=== PATIENT | male | born 1950 | race Caucasian/White ===

== ENCOUNTER 2019-07-31 16:07 | Inpatient (IN) | payer MEDICARE ==
[~2019-07-31] VITALS: Ht 177.8 cm; Wt 78.3 kg
--- NOTE | 2019-07-31 16:35 | NUR ---
HOSPITALIST AT BEDSIDE FOR EVAL. PT DIRECT ADMIT. PT CALM, RESTING. VSS. CALL TIAN IN REACH.
[2019-07-31] MEDS ORDERED: CHLORDIAZEPOXIDE 25 MG CAPSULE PO PRN (17:30)
[2019-07-31] MEDS ORDERED: LORazepam 2 MG/ML, 1ML IV PRN ×4 (17:30)
[2019-07-31] MEDS ORDERED: ACETAMINOPHEN 325 MG TABLET PO PRN (17:30)
[2019-07-31] MEDS ORDERED: AMLODIPINE 5 MG TABLET PO ONE (17:30)
[2019-07-31] MEDS ORDERED: PROMETHAZINE 25 MG/ML, 1ML IM PRN (17:30)
[2019-07-31] MEDS: NICOTINE 21 MG/24 HR PATCH.TD24 TD SCH (17:30)
[2019-07-31] MEDS ORDERED: THIAMINE 100MG TABLET PO ONE (17:30)
[2019-07-31] MEDS ORDERED: morphine SULFATE 10 MG/ML, 1ML IVPush PRN (17:30)
[2019-07-31] MEDS ORDERED: LABETALOL 5MG/ML, 20ML IVPush PRN (17:30)
[2019-07-31] MEDS ORDERED: hydrALAzine 20 MG/ML, 1ML IVPush PRN (17:30)
[2019-07-31] MEDS ORDERED: LORazepam 1MG TABLET PO PRN ×3 (17:30)
[2019-07-31] MEDS ORDERED: ONDANSETRON 2MG/ML, 2ML IVPush PRN (17:30)
[2019-07-31] MEDS ORDERED: THIAMINE 200 MG in SODIUM CHLORIDE 0.9% 50 ML IV ONE (17:30)
[2019-07-31] MEDS ORDERED: LORazepam 0.5MG TABLET PO PRN (17:30)
[2019-07-31] MEDS ORDERED: GADOTERATE 7.5 MMOL/15 ML SYR ONE (17:40)
--- NOTE | 2019-07-31 17:41 | NUR ---
CORRECTION: PT WAS OUT OF ROOM FOR TEST.
[2019-07-31] MEDS ORDERED: AMLODIPINE 5 MG TABLET ONE (18:23)
[2019-07-31] MEDS ORDERED: HEPARIN 5,000 UNITS/ML, 1ML ONE (18:23)
[2019-07-31] MEDS ORDERED: OXYcodone/APAP 5/325MG TABLET ONE (18:24)
[2019-07-31 18:28] LABS: TROPONIN I 0.036 ng/mL (0.000-0.045)
[2019-07-31] MEDS: POTASSIUM CHLORIDE 20 MEQ, MAGNESIUM SULFATE 2 GM, THIAMINE 200 MG, MVI ADULT 10 ML, FO... IV SCH (18:29)
[2019-07-31] MEDS: OXYcodone/APAP 5/325MG TABLET PO PRN (18:29)
[2019-07-31] MEDS: HEPARIN 5,000 UNITS/ML, 1ML SQ SCH (18:30)
--- NOTE | 2019-07-31 18:32 | NUR ---
XRAY WAITNG FOR PT TO GET JEANS OFF
[2019-07-31] MEDS ORDERED: HYDR-3341 PO (18:39)
--- NOTE | 2019-07-31 18:45 | NUR ---
XR KNEE PLANNED. MRI SHOWS OLD R STROKE.
--- NOTE | 2019-07-31 19:03 | NUR ---
CALLED FOR HOSPITAL BED. EKG DONE.
--- NOTE | 2019-07-31 20:22 | NUR ---
REPORT TO ACCEPTING RN.
[2019-07-31 21:02] VITALS: BP 175/75
[2019-07-31] MEDS ORDERED: ALUMINUM/MAG/SIMETHICONE 30 ML UDC ONE (22:01)
[2019-07-31] MEDS: THIAMINE 100MG TABLET PO SCH (22:11)
[2019-07-31] MEDS: ALUMINUM/MAG/SIMETHICONE 30 ML UDC PO PRN (22:11)
[2019-08-01] VITALS (8 sets, daily range): BP systolic 128–179; BP diastolic 72–86
[2019-08-01 01:28] LABS: TROPONIN I 0.091 ng/mL (0.000-0.045)
[2019-08-01] MEDS: OXYcodone/APAP 5/325MG TABLET PO PRN ×2 (03:11→21:52)
[2019-08-01] MEDS: HEPARIN 5,000 UNITS/ML, 1ML SQ SCH ×3 (03:13→21:44)
[2019-08-01] MEDS: ALUMINUM/MAG/SIMETHICONE 30 ML UDC PO PRN (05:51)
[2019-08-01 06:19] LABS: BASOPHILS # (AUTO) 0.02 x10^3/uL (0-0.1); BASOPHILS % (AUTO) 0 % (0-1); EOSINOPHILS # (AUTO) 0.04 x10^3/uL (0-0.4); EOSINOPHILS % (AUTO) 1 % (1-7); LYMPHOCYTES # (AUTO) 1.51 x10^3/uL (1-3.4); LYMPHOCYTES % (AUTO) 18 % (22-44); MD NO; MEAN CORPUSCULAR HEMOGLOBIN 34.6 pg (27.5-34.5); MEAN CORPUSCULAR HGB CONC 34.1 g/dL (33.2-36.2); MEAN CORPUSCULAR VOLUME 101.5 fL (81-97); MEAN PLATELET VOLUME 9.1 fL (7.4-10.4); MONOCYTES # (AUTO) 0.94 x10^3/uL (0.2-0.8); MONOCYTES % (AUTO) 11 % (2-9); NEUTROPHILS # (AUTO) 6.11 x10^3/uL (1.8-6.8); NEUTROPHILS % (AUTO) 71 % (42-75); PLATELET COUNT 170 x10^3/uL (130-400); RED BLOOD COUNT 3.23 x10^6/uL (4.38-5.82); RED CELL DISTRIBUTION WIDTH 13.9 % (9.4-14.8)
[2019-08-01 06:21] LABS: ALBUMIN 2.6 g/dL (3.4-5.0); ANION GAP 8 mmol/L (5-15); CHLORIDE 105 mmol/L (98-107)
[2019-08-01 06:28] LABS: ALANINE AMINOTRANSFERASE 24 U/L (12-78); ALKALINE PHOSPHATASE 98 U/L (45-117); BILIRUBIN,TOTAL 0.7 mg/dL (0.2-1.0); CREATININE 0.89 mg/dL (0.7-1.3); TOTAL PROTEIN 6.5 g/dL (6.4-8.2); TROPONIN I 0.086 ng/mL (0.000-0.045)
[2019-08-01] MEDS ORDERED: POTASSIUM PHOSPHATE 22 MEQ in SODIUM CHLORIDE 0.9% 500 ML IV ONE (07:30)
[2019-08-01] MEDS: FOLIC ACID 1 MG TABLET PO SCH (09:55)
[2019-08-01] MEDS: ASPIRIN 81 MG TABLET CHEW PO SCH (09:55)
[2019-08-01] MEDS: THIAMINE 100MG TABLET PO SCH ×2 (09:55→21:41)
[2019-08-01] MEDS: MAALOX/HYOSCYAMINE/LIDOCAINE 45 ML BTL PO PRN ×2 (11:42→21:41)
[2019-08-01] MEDS: POTASSIUM CHLORIDE 20 MEQ, MAGNESIUM SULFATE 2 GM, THIAMINE 200 MG, MVI ADULT 10 ML, FO... IV SCH ×2 (13:49→23:00)
[2019-08-01] MEDS ORDERED: AMLODIPINE 5 MG TABLET PO SCH (21:00)
[2019-08-01] MEDS: ATORVASTATIN 40 MG TABLET PO SCH (21:41)
[2019-08-01] MEDS: NICOTINE 21 MG/24 HR PATCH.TD24 TD SCH (21:44)
[2019-08-02 04:18] VITALS: BP 151/77
[2019-08-02] MEDS: HEPARIN 5,000 UNITS/ML, 1ML SQ SCH (06:16)
[2019-08-02 06:18] LABS: ALANINE AMINOTRANSFERASE 23 U/L (12-78); ALBUMIN 2.6 g/dL (3.4-5.0); ANION GAP 7 mmol/L (5-15); CALCIUM 7.8 mg/dL (8.5-10.1); CHLORIDE 107 mmol/L (98-107); CREATININE 0.81 mg/dL (0.7-1.3)
[2019-08-02 06:20] LABS: ALKALINE PHOSPHATASE 86 U/L (45-117); BILIRUBIN,TOTAL 0.7 mg/dL (0.2-1.0); TOTAL PROTEIN 6.4 g/dL (6.4-8.2)
[2019-08-02 07:30] VITALS: BP 165/78
[2019-08-02 07:33] VITALS: BP 156/77
[2019-08-02 07:35] VITALS: BP 169/84
[2019-08-02] MEDS: NEUTRA PHOS K 250 MG TABLET PO SCH ×2 (08:46→20:02)
[2019-08-02] MEDS: ASPIRIN 81 MG TABLET CHEW PO SCH (08:46)
[2019-08-02] MEDS: AMLODIPINE 5 MG TABLET PO SCH ×2 (08:46→08:49)
[2019-08-02] MEDS: THIAMINE 100MG TABLET PO SCH ×2 (08:47→20:03)
[2019-08-02] MEDS: LISINOPRIL 20 MG TABLET PO SCH ×2 (08:47→20:02)
[2019-08-02] MEDS: FOLIC ACID 1 MG TABLET PO SCH (08:47)
[2019-08-02] MEDS: MAALOX/HYOSCYAMINE/LIDOCAINE 45 ML BTL PO PRN (09:53)
[2019-08-02] MEDS: POTASSIUM CHLORIDE 20 MEQ, MAGNESIUM SULFATE 2 GM, THIAMINE 200 MG, MVI ADULT 10 ML, FO... IV SCH ×2 (10:49→14:24)
[2019-08-02] MEDS ORDERED: OMNIPAQUE 350 MG/ML, 100ML BOTTLE ONE ×3 (12:49→21:07)
[2019-08-02 12:53] VITALS: BP 152/91
[2019-08-02] MEDS: OXYcodone/APAP 5/325MG TABLET PO PRN ×2 (12:57→20:04)
[2019-08-02] MEDS: ENOXAPARIN 40 MG/0.4 ML SQ SCH (17:04)
[2019-08-02 19:51] VITALS: BP_SYST 172; BP_SYST 184; BP_DIAS 76; BP_DIAS 88
[2019-08-02] MEDS: ATORVASTATIN 40 MG TABLET PO SCH (20:02)
[2019-08-02] MEDS ORDERED: CHLORDIAZEPOXIDE 25 MG CAPSULE PO PRN (21:00)
[2019-08-03 01:15] VITALS: BP 179/86
[2019-08-03] MEDS: OXYcodone/APAP 5/325MG TABLET PO PRN ×4 (01:20→21:03)
[2019-08-03] MEDS: NICOTINE 21 MG/24 HR PATCH.TD24 TD SCH ×2 (01:29→23:21)
[2019-08-03 05:14] LABS: ALBUMIN 2.3 g/dL (3.4-5.0); CALCIUM 7.8 mg/dL (8.5-10.1); CHLORIDE 105 mmol/L (98-107)
[2019-08-03 05:20] LABS: ALANINE AMINOTRANSFERASE 22 U/L (12-78); ALKALINE PHOSPHATASE 78 U/L (45-117); ANION GAP 5 mmol/L (5-15); BILIRUBIN,TOTAL 0.7 mg/dL (0.2-1.0); CREATININE 0.79 mg/dL (0.7-1.3); TOTAL PROTEIN 6.3 g/dL (6.4-8.2)
[2019-08-03] MEDS: AMLODIPINE 5 MG TABLET PO SCH (08:55)
[2019-08-03] MEDS: ASPIRIN 81 MG TABLET CHEW PO SCH (08:55)
[2019-08-03] MEDS: LISINOPRIL 20 MG TABLET PO SCH ×2 (08:55→21:01)
[2019-08-03] MEDS: THIAMINE 100MG TABLET PO SCH ×2 (08:55→21:01)
[2019-08-03] MEDS: FOLIC ACID 1 MG TABLET PO SCH (08:55)
[2019-08-03] MEDS: NEUTRA PHOS K 250 MG TABLET PO SCH ×2 (08:56→21:01)
[2019-08-03 09:00] VITALS: BP 175/86
[2019-08-03 10:00] VITALS: BP 160/80
[2019-08-03] MEDS: LEVOFLOXACIN/PMX 750MG/150ML 150 ML IV SCH (10:32)
[2019-08-03 14:25] VITALS: BP 153/71
[2019-08-03] MEDS: ENOXAPARIN 40 MG/0.4 ML SQ SCH (16:12)
[2019-08-03 19:05] VITALS: BP 143/64
[2019-08-03] MEDS: ATORVASTATIN 40 MG TABLET PO SCH (21:01)
[2019-08-04 00:21] VITALS: BP 159/82
[2019-08-04 07:10] VITALS: BP 156/83
[2019-08-04] MEDS ORDERED: LISI-170 PO (08:24)
[2019-08-04] MEDS ORDERED: LEVO750T26 PO (08:24)
[2019-08-04] MEDS ORDERED: ASPI-515 PO (08:24)
[2019-08-04] MEDS ORDERED: CHLO25CA9 PO (08:24)
[2019-08-04] MEDS ORDERED: NICO-487 TD (08:24)
[2019-08-04] MEDS ORDERED: AMLO-150 PO (08:27)
[2019-08-04] MEDS: THIAMINE 100MG TABLET PO SCH (08:47)
[2019-08-04] MEDS: LEVOFLOXACIN/PMX 750MG/150ML 150 ML IV SCH (08:47)
[2019-08-04] MEDS: NEUTRA PHOS K 250 MG TABLET PO SCH (08:47)
[2019-08-04] MEDS: FOLIC ACID 1 MG TABLET PO SCH (08:48)
[2019-08-04] MEDS: LISINOPRIL 20 MG TABLET PO SCH (08:48)
[2019-08-04] MEDS: ASPIRIN 81 MG TABLET CHEW PO SCH (08:48)
[2019-08-04] MEDS: AMLODIPINE 5 MG TABLET PO SCH (08:48)
[2019-08-04] MEDS ORDERED: FLU VACC QS2019-20 36MOS UP/PF 0.5 ML IM-VACC ONE (11:30)
[2019-08-04 11:48] VITALS: BP 149/73
== END 2019-08-04 16:05 | DRG 896 ==
LOC: ED 16:29 → EDIP 18:13 → 5SO 20:44
PROVIDERS: ADMIT Hospitalist; ATTEND Family Medicine
DX: F10.10 Alcohol abuse, uncomplicated (principal); J18.9 Pneumonia, unspecified organism; E43 Unspecified severe protein-calorie malnutrition; E87.1 Hypo-osmolality and hyponatremia; J98.11 Atelectasis; R42 Dizziness and giddiness; H55.00 Unspecified nystagmus; I73.9 Peripheral vascular disease, unspecified; I10 Essential (primary) hypertension; E83.39 Other disorders of phosphorus metabolism; F12.90 Cannabis use, unspecified, uncomplicated; I08.0 Rheumatic disorders of both mitral and aortic valves; Y90.9 Presence of alcohol in blood, level not specified; R94.5 Abnormal results of liver function studies; M25.561 Pain in right knee; W18.39XA Other fall on same level, initial encounter; I44.7 Left bundle-branch block, unspecified; I77.819 Aortic ectasia, unspecified site; Z72.0 Tobacco use; Z88.8 Allergy status to other drugs, medicaments and biological substances; Y93.89 Activity, other specified; Y92.098 Other place in other non-institutional residence as the place of occurrence of the external cause; Y99.8 Other external cause status; Z71.41 Alcohol abuse counseling and surveillance of alcoholic; Z71.6 Tobacco abuse counseling; Z86.73 Personal history of transient ischemic attack (TIA), and cerebral infarction without residual deficits
CPT/HCPCS: 36415; 36600; 70498; 70553; 71275; 80053; 82533; 82803; 82962; 83036; 83735; 84100; 84443; 84484; 85025; 93005; 93306; 93880; 96374; G0378; J1644; J1650; J1956; J3411; J3475; J3480; J7042; Q9967; A9575; J0360; J7040